=== PATIENT | female | born 1990 | race Caucasian/White ===

== ENCOUNTER 2021-07-18 20:06 | Emergency (ER) | payer MEDICAID ==
[~2021-07-18] VITALS: Ht 165.1 cm; Wt 80.0 kg
[2021-07-18 20:12] VITALS: BP 125/80
[2021-07-18] MEDS ORDERED: BACITRACIN ZINC OINT UDPKT TOP ONE (20:45)
[2021-07-18] MEDS ORDERED: ACETAMINOPHEN 325MG TABLET PO ONE (20:45)
[2021-07-18] MEDS ORDERED: LIDOCAINE HCL/PF 1% 10 MG/ML 5ML VIAL INFIL ONE (20:45)
[2021-07-18] MEDS ORDERED: LIDOCAINE HCL 1% 20ML VIAL (Pyxis) INJ INFIL NR (21:00)
[2021-07-18] MEDS ORDERED: ACET-2708 MT (21:38)
[2021-07-18] MEDS ORDERED: AMOX-424 MT (21:38)
[2021-07-18] MEDS ORDERED: AMOXICILLIN/POTASSIUM CLAVULANATE 875/125MG TAB PO ONE (21:45)
== END 2021-07-18 23:00 | disposition home or self-care (01) ==
LOC: ER 20:06
DX: S01.511A Laceration without foreign body of lip, initial encounter (principal); W54.0XXA Bitten by dog, initial encounter; Y93.89 Activity, other specified; Y92.89 Other specified places as the place of occurrence of the external cause; Y99.8 Other external cause status
CPT/HCPCS: 12011; 99283; J3490